=== PATIENT | male | born 1950 | race Caucasian/White ===

== ENCOUNTER 2022-07-22 22:18 | Inpatient (IN) | payer BC, MEDICARE ==
[~2022-07-22] VITALS: Ht 160 cm; Wt 115.7 kg
--- NOTE | 2022-07-22 22:50 | NUR ---
BIBRA88 C/O FEVER 101.0 F AT HOME. STOCK WETTER TOOK TYLENOL 1300MG. UPON TRIAGE T 98.6. PATIENT IS AAOX4. ABLE TO MAKE NEEDS KNOWN. 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 PATIENT HAS MULTIPLE PRESSURE SORES BILATERAL FEET AND SACRAL AREA. CAME WITH COLOSTOMY BAG ON RIGHT LOWER ABDOMEN. WITH SUPRAPUBIC CATHETER ATTACHED TO UROBAG. ATTACHED TO MONITOR. VITALS CHECKED.
[2022-07-22] MEDS ORDERED: IV NS 0.9% 500 ML BAG IV ONE (23:00)
--- NOTE | 2022-07-22 23:00 | NUR ---
EKG DONE AT BEDSIDE
--- NOTE | 2022-07-22 23:09 | NUR ---
COVID AND INFLUENZA SWAB DONE AND SENT TO LAB
--- NOTE | 2022-07-22 23:12 | NUR ---
XRAY DONE AT BEDSIDE
--- NOTE | 2022-07-22 23:30 | NUR ---
URINE SPECIMEN COLLECTED FROM SUPRAPUBIC CATHETER SENT TO LAB
--- NOTE | 2022-07-22 23:30 | NUR ---
IV CANNULA G20 INSERTED ON THE RIGHT FA. BLOOD DRAWN AND SENT TO LAB
[2022-07-22 23:36] LABS: BASOPHILS # (AUTO) 0.1 K/uL (0.0-0.2); BASOPHILS % (AUTO) 0.9 % (0.0-2.0); EOSINOPHILS % (AUTO) 0.6 % (0.0-6.0); HEMATOCRIT 28 % (39-51); HEMOGLOBIN 8.4 g/dL (13.5-17.5); LYMPHOCYTES # (AUTO) 2.6 K/uL (0.8-4.8); LYMPHOCYTES % (AUTO) 19.2 % (20.0-44.0); MEAN CORPUSCULAR HGB CONC 31 g/dl (31.0-36.0); MEAN CORPUSCULAR VOLUME 79 fL (80-96); MONOCYTES # (AUTO) 0.8 K/uL (0.1-1.30); MONOCYTES % (AUTO) 6.1 % (2.0-12.0); NEUTROPHILS % (AUTO) 73.2 % (43.0-81.0); PLATELET COUNT (AUTO) 255 K/uL (150-450); RED BLOOD CELL COUNT(AUTO) 3.47 MIL/uL (4.5-6.0); WHITE BLOOD COUNT (AUTO) 13.7 K/uL (4.3-11.0)
--- NOTE | 2022-07-22 23:48 | NUR ---
Nery austin in ED - 07/22/22 at 2349 by TOD REPEAT TROP DONE AT BEDSIDE BY SKEET OPERATOR
[2022-07-22 23:53] LABS: CALCIUM, SERUM 9.1 mg/dL (8.5-10.1); CARBON DIOXIDE 24 mmol/L (21-32); CHLORIDE 110 mmol/L (98-107); GLUCOSE 156 mg/dL (74-106); POTASSIUM 5.6 mmol/L (3.5-5.1); SODIUM SERUM 141 mmol/L (136-145); UREA NITROGEN, BLOOD 49 mg/dL (7-18)
[2022-07-23 00:05] LABS: ALANINE AMINOTRANSFERASE 31 U/L (12-78); ALBUMIN 2.5 g/dL (3.4-5.0); ALKALINE PHOSPHATASE 77 U/L (46-116); ASPARTATE AMINOTRANSFERASE 19 U/L (15-37); BILIRUBIN,DIRECT 0.1 mg/dL (0.0-0.2); BILIRUBIN,TOTAL 0.3 mg/dL (0.2-1.0); TOTAL PROTEIN, SERUM 8.1 g/dL (6.4-8.2)
[2022-07-23 01:02] LABS: BILIRUBIN,URINE 1+ (NEGATIVE); COLOR,URINE DARK YELLOW (YELLOW); LEUKOCYTE ESTERASE ,URINE 3+ (NEGATIVE); NITRITE, URINE POSITIVE (NEGATIVE); PROTEIN,URINE 2+ mg/dl (NEGATIVE); UGLUCOSE NEGATIVE (NEGATIVE); UROBILINOGEN,URINE 0.2 EU/dL (0.2)
[2022-07-23 01:26] LABS: BACTERIA,URINE Many /HPF (None Seen); SQUAMOUS EPITHELIAL CELL,UR Moderate /HPF (None Seen)
[2022-07-23] MEDS ORDERED: CIPROFLOXACIN IV RTU 400 MG in PREMIX 1 EA IV SCH (01:30)
[2022-07-23] MEDS ORDERED: MAGNESIUM HYDROXIDE 30 ML UDC PO PRN (02:00)
[2022-07-23] MEDS ORDERED: TEMAZEPAM 15 MG CAPSULE PO PRN (02:00)
[2022-07-23] MEDS ORDERED: INSULIN REGULAR, HUMAN 100 UNIT/ML 3 ML VIAL SQ PRN (02:00)
[2022-07-23] MEDS ORDERED: Z GUARD REMEDY 4 OZ OINT TP PRN (02:00)
[2022-07-23] MEDS ORDERED: ACETAMINOPHEN 325 MG TABLET PO PRN (02:00)
[2022-07-23] MEDS ORDERED: IV NS 0.9% 1,000 ML IV PRN ×2 (02:00→10:00)
[2022-07-23] MEDS ORDERED: ONDANSETRON HCL/PF 4 MG/2 ML VIAL IVP PRN (02:00)
[2022-07-23] MEDS ORDERED: DEXTROSE 50%-WATER 50 ML DISP.SYRIN IV PRN (02:00)
[2022-07-23] MEDS ORDERED: MAG HYDROX/AL HYDROX/SIMETH 30 ML UDC PO PRN (02:00)
[2022-07-23] MEDS ORDERED: MORPHINE SULFATE INJ 2 MG/ML DISP.SYRIN IV PRN (02:00)
[2022-07-23] MEDS ORDERED: HYDROCODONE/APAP 5/325MG TABLET PO PRN (02:00)
[2022-07-23] MEDS ORDERED: CIPROFLOXACIN IV RTU 200 ML IV ONE (02:09)
[2022-07-23] MEDS ORDERED: MEROPENEM 500 MG in IV NS 0.9% 50 ML IV ONE (04:30)
[2022-07-23] MEDS ORDERED: MEROPENEM 500 MG VIAL IV ONE (05:02)
--- NOTE | 2022-07-23 07:14 | NUR ---
PATIENT COMPLAINING OF DULLNESS DISCOMFORT ON HIS LEFT SHOULDER. PATIENT REPOSITIONED. HOT PACKS APPLIED WITH RELIEF. PATIENT WILL BE CONTINUOUSLY BE MONITORED.
[2022-07-23] MEDS: BLOOD SUGAR DIAGNOSTIC 1 EACH STRIP IN SCH ×4 (07:30→22:53)
[2022-07-23] MEDS: PANTOPRAZOLE 40 MG TABLET.DR PO SCH (07:30)
[2022-07-23] MEDS ORDERED: PANTOPRAZOLE 40 MG TABLET.DR PO ONE (07:45)
[2022-07-23] MEDS ORDERED: MEROPENEM 500 MG in IV NS 0.9% 50 ML IV SCH (09:00)
--- NOTE | 2022-07-23 10:15 | NUR ---
room 326-1
[2022-07-23] MEDS: MEROPENEM 500 MG in IV NS 0.9% 100 ML IV SCH ×2 (10:20→21:50)
--- NOTE | 2022-07-23 11:09 | NUR ---
kit left contact number. home: [phone], jessica: [phone]
[2022-07-23] MEDS ORDERED: SODIUM POLYSTYRENE SULF. PWD 15 GM UDC PO ONE (13:00)
--- NOTE | 2022-07-23 13:00 | NUR ---
room assigned. 104. admitting aware
--- NOTE | 2022-07-23 13:47 | NUR ---
REPORT GIVEN TO BRENDAN RN FOR LATA
[2022-07-23 14:10] VITALS: BP 130/68
--- NOTE | 2022-07-23 14:10 | NUR ---
MS RN ADMITTING NOTES RECEIVED PT FROM ER VIA GURNEY, ALERT, ORIENTEDX4, DX UTI/FEVER BY DR. PERES. ROOM AIR, NO SOB, NO DISTRESS, RESPIRATION UNLABORED, O2 SAT >95%, DENIES PAIN AT THIS TIME. IV ACCESS ON RIGHT FA G 22 FLUSHES WELL, SITE CLEAR, SUPRAPUBIC CATHETER DRAINING TEA COLORED URINE, WITH SEDIMENTS. PATIENT WITH MULTIPLE WOUNDS ON BOTH FEET, FULL THICKNESS LOSS ON SACROCOCCYGEAL AREA AND LEFT BUTTOCK. PHOTOS TAKEN. PT ON CCHO DIET. PATIENT BEDBOUND AND WITH VERY LIMITED BED MOBILITY. UNIT ORIENTATION AND USE OF CALL LIGHT DONE. SAFETY MEASURES IN PLACE. HOB UP X 30 DEG. SR UP X 2, BED LOW LOCKED, WILL CONTINUE TO MONITOR.
[2022-07-23] MEDS: HEPARIN SODIUM, PORCINE 5000 UNITS/1 ML VIAL SQ SCH ×2 (15:27→21:50)
--- NOTE | 2022-07-23 15:30 | NUR ---
RN NOTES MEDICATIONS FOR 10 AM, 12 NOON AND 1300 NOT ADMINISTERED AT ER. JUST ADMINISTERED NOW.
[2022-07-23 16:00] VITALS: BP 127/60
--- NOTE | 2022-07-23 19:15 | NUR ---
RN NOTES RECEIVED PT FOR CONTINUITY OF CARE. PATIENT A/OX4 IN NO S/SX OF ACUTE DISTRESS AT THIS TIME; CURRENTLY ON ROOM AIR; WITH 02 SAT >95% AT THIS TIME. WITH IV ACCESS ON R FA#20 PATENT, INTACT AND FLUSHING WELL. WITH RUNNING ORDERED. ENSURE SAFETY MEASURES WITHIN THE SHIFT. PATIENT BED ALARM IS ON. HEAD OF BED ELEVATED. BED IS LOCKED, IN LOWEST POSITION AND SIDE RAILS UP. CALL LIGHT WITHIN REACH OF THE PATIENT. WILL CONTINUE TO MONITOR AND REASSESS FOR ANY CHANGES AND WILL CARRY OUT ANY ONGOING AND ACTIVE MD ORDER.
--- NOTE | 2022-07-23 19:30 | NUR ---
RN CLOSING NOT PT IN BED, SUPINE POSITION, IV SITE FLUSHES WELL. BED IN LOWEST POSITION, ALL SAFETY MEASURES IMPLEMENTED.
[2022-07-23 20:00] VITALS: BP 108/57
--- NOTE | 2022-07-23 22:00 | NUR ---
RN NOTES SECURED ADDITIONAL IV ACCESS ON R HAND#22, PATENT INTACT AND FLUSHING WELL. BIT BENDER MADE AWARE.
[2022-07-24 04:00] VITALS: BP 115/61
[2022-07-24 06:26] LABS: BASOPHILS # (AUTO) 0.1 K/uL (0.0-0.2); BASOPHILS % (AUTO) 0.5 % (0.0-2.0); EOSINOPHILS % (AUTO) 2.6 % (0.0-6.0); HEMATOCRIT 25 % (39-51); HEMOGLOBIN 7.9 g/dL (13.5-17.5); LYMPHOCYTES # (AUTO) 3.4 K/uL (0.8-4.8); LYMPHOCYTES % (AUTO) 34.6 % (20.0-44.0); MEAN CORPUSCULAR HGB CONC 31 g/dl (31.0-36.0); MEAN CORPUSCULAR VOLUME 80 fL (80-96); MONOCYTES # (AUTO) 0.8 K/uL (0.1-1.30); MONOCYTES % (AUTO) 8.2 % (2.0-12.0); NEUTROPHILS # (AUTO) 5.2 K/uL (1.8-8.9); NEUTROPHILS % (AUTO) 54.1 % (43.0-81.0); PLATELET COUNT (AUTO) 222 K/uL (150-450); RED BLOOD CELL COUNT(AUTO) 3.16 MIL/uL (4.5-6.0); WHITE BLOOD COUNT (AUTO) 9.7 K/uL (4.3-11.0)
[2022-07-24 06:39] LABS: CALCIUM, SERUM 8.8 mg/dL (8.5-10.1); CARBON DIOXIDE 24 mmol/L (21-32); CHLORIDE 110 mmol/L (98-107); GLUCOSE 84 mg/dL (74-106); MAGNESIUM 1.9 mg/dL (1.8-2.4); PHOSPHORUS 4.8 mg/dL (2.5-4.9); POTASSIUM 4.4 mmol/L (3.5-5.1); SODIUM SERUM 142 mmol/L (136-145); UREA NITROGEN, BLOOD 47 mg/dL (7-18)
--- NOTE | 2022-07-24 06:42 | NUR ---
RN CLOSING NOTE: PATIENT REMAINS IN ROOM IN NO SIGNS OF RESPIRATORY DISTRESS, PATIENT STILL ON ROOM AIR;TOLERATING WELL SATURATING @ >95% SP02. ON CONSISTENT CARB DIET. ON MED SURG STATUS. COLOSTOMY BAG CHANGE DONE, SECURED AND INTACT. SAFETY MEASURES IMPLEMENTED, BED IN LOWEST POSITION, LOCKED, SIDE RAILS UP, CALL LIGHT WITHIN REACH. ALL NEEDS AND ORDERS ADDRESSED DURING THE SHIFT. IV ACCESS MAINTAINED INTACT, SECURED AND FLUSHING WELL. IV FLUIDS RUNNING ORDERED. ALL DUE MEDS GIVEN ORDERED & SCHEDULED ; PATIENT TOLERATED WELL. PATIENT KEPT CLEAN AND COMFORTABLE WITHIN THE SHIFT. PATIENT ENDORSED TO INCOMING SHIFT RN WITH STABLE VITAL SIGN AND FOR CONTINUITY OF CARE.
[2022-07-24 06:47] LABS: CHOLESTEROL 131 mg/dL (<200); HDL CHOLESTEROL 26 mg/dL (40-60); LDL 84 mg/dL (0-99); THYROID STIMULATING HORMONE 2.179 uIU/mL (0.358-3.74); TRIGLYCERIDES 164 mg/dL (30-150)
[2022-07-24] MEDS: BLOOD SUGAR DIAGNOSTIC 1 EACH STRIP IN SCH (07:29)
[2022-07-24] MEDS: PANTOPRAZOLE 40 MG TABLET.DR PO SCH (07:59)
[2022-07-24 08:00] VITALS: BP 129/59
[2022-07-24] MEDS: HEPARIN SODIUM, PORCINE 5000 UNITS/1 ML VIAL SQ SCH ×2 (08:01→22:00)
[2022-07-24] MEDS: MEROPENEM 500 MG in IV NS 0.9% 100 ML IV SCH ×2 (10:41→22:00)
[2022-07-24] MEDS ORDERED: ZOLP5TAB8 PO (10:51)
[2022-07-24] MEDS ORDERED: CHOL200059 PO (10:51)
[2022-07-24] MEDS ORDERED: COLL30OI TP (10:51)
[2022-07-24] MEDS ORDERED: FERR325T23 PO (10:51)
[2022-07-24] MEDS ORDERED: ESCI10TA PO (10:51)
[2022-07-24] MEDS ORDERED: NYST15CR2 TD (10:51)
[2022-07-24] MEDS ORDERED: MULT-447 PO (10:51)
[2022-07-24] MEDS ORDERED: ICOS1CAP PO (10:51)
[2022-07-24] MEDS ORDERED: CLOP75TA15 PO (10:51)
[2022-07-24] MEDS ORDERED: BALS60OI TP (10:56)
[2022-07-24] MEDS ORDERED: AMMO225L14 TP (10:58)
[2022-07-24] MEDS: IV NS 0.9% 1,000 ML IV SCH ×2 (11:35→23:20)
[2022-07-24 16:00] VITALS: BP 134/65
--- NOTE | 2022-07-24 19:30 | NUR ---
PT IN ROOM AWAKE. NO SIGNS OF RESPIRATORY DISTRESS ON ROOM AIR; SATURATING @ >95% SP02. ON CONSISTENT CARB DIET. ON MED SURG STATUS. HAS COLOSTOMY BAG AND SUPRAPUBIC CATH IN PLACE. IV ACCESS ON RFA #20 INFUSING NS AT 75ML/HR. SAFETY MEASURES IN PLACE. WILL CONTINUE PLAN OF CARE.
[2022-07-24 20:00] VITALS: BP 141/63
[2022-07-24] MEDS: MUPIROCIN OINT 2% 22 GM TUBE NS SCH (21:59)
[2022-07-25 04:00] VITALS: BP 139/61
--- NOTE | 2022-07-25 06:35 | NUR ---
PT ASLEEP IN ROOM. NO SIGNS OF RESPIRATORY DISTRESS ON ROOM AIR; SATURATING @ >95% SP02. ON CONSISTENT CARB DIET. ON MED SURG STATUS. HAS COLOSTOMY BAG AND SUPRAPUBIC CATH IN PLACE, BOTH C/D/I. IV ACCESS ON RFA #20 INFUSING NS AT 75ML/HR. WOUND CARE PERFORMED. DUE MEDS GIVEN ORDERED. NEEDS ATTENDED. SAFETY MEASURES MAINTAINED. WILL ENDORSE TO NEXT NURSE ON DUTY FOR CONTINUITY OF CARE.
[2022-07-25 06:51] LABS: BASOPHILS % (AUTO) 0.4 % (0.0-2.0); EOSINOPHILS % (AUTO) 2.5 % (0.0-6.0); HEMATOCRIT 25 % (39-51); HEMOGLOBIN 7.7 g/dL (13.5-17.5); LYMPHOCYTES # (AUTO) 3.2 K/uL (0.8-4.8); MEAN CORPUSCULAR HGB CONC 31 g/dl (31.0-36.0); MEAN CORPUSCULAR VOLUME 79 fL (80-96); MONOCYTES # (AUTO) 0.7 K/uL (0.1-1.30); MONOCYTES % (AUTO) 8.6 % (2.0-12.0); NEUTROPHILS # (AUTO) 4.4 K/uL (1.8-8.9); NEUTROPHILS % (AUTO) 51.5 % (43.0-81.0); PLATELET COUNT (AUTO) 230 K/uL (150-450); RED BLOOD CELL COUNT(AUTO) 3.12 MIL/uL (4.5-6.0); WHITE BLOOD COUNT (AUTO) 8.5 K/uL (4.3-11.0)
[2022-07-25 07:02] LABS: ALANINE AMINOTRANSFERASE 29 U/L (12-78); ALBUMIN 2.2 g/dL (3.4-5.0); ALKALINE PHOSPHATASE 65 U/L (46-116); ASPARTATE AMINOTRANSFERASE 21 U/L (15-37); BILIRUBIN,TOTAL 0.3 mg/dL (0.2-1.0); CALCIUM, SERUM 8.6 mg/dL (8.5-10.1); CARBON DIOXIDE 27 mmol/L (21-32); CHLORIDE 110 mmol/L (98-107); CREATININE 1.7 mg/dL (0.6-1.3); GLUCOSE 86 mg/dL (74-106); POTASSIUM 3.9 mmol/L (3.5-5.1); SODIUM SERUM 142 mmol/L (136-145); TOTAL PROTEIN, SERUM 7.3 g/dL (6.4-8.2); UREA NITROGEN, BLOOD 40 mg/dL (7-18)
--- NOTE | 2022-07-25 07:10 | NUR ---
RN notes Received patient in bed. Alert and conscious without active complaint. IV site over right forearm is dry and intact with NS running at 75mL/hr. Call wayne is placed within reach. Bed is locked and placed in the lowest position. All safety measures have been implemented. Will continue monitoring and care. Addendum: 07/25/22 at 0759 by MAHENDRA WEBB RN No intravenous fluid is being administered for patient.
[2022-07-25] MEDS: PANTOPRAZOLE 40 MG TABLET.DR PO SCH (07:46)
[2022-07-25 08:02] VITALS: BP 136/58
[2022-07-25] MEDS: HEPARIN SODIUM, PORCINE 5000 UNITS/1 ML VIAL SQ SCH ×2 (09:23→21:46)
[2022-07-25] MEDS: MUPIROCIN OINT 2% 22 GM TUBE NS SCH ×2 (09:23→21:47)
[2022-07-25] MEDS: MEROPENEM 1 G in IV NS 0.9% 100 ML IV SCH ×2 (11:34→21:47)
[2022-07-25 16:00] VITALS: BP 133/54
[2022-07-25] MEDS: GLUCERNA SHAKE 237 ML CAN PO SCH (17:57)
--- NOTE | 2022-07-25 18:45 | NUR ---
RN NOTES Pt in bed, verbally responsive. AOX4. No c/o pain. On RA, no sob, no acute resp distress. IV on R hand, patent, no redness, intact. Call wayne is placed within reach. Bed is locked and placed in the lowest position. All safety measures have been implemented. Will endorse PM nurse to continue monitoring and care.
[2022-07-25 20:00] VITALS: BP 148/63
--- NOTE | 2022-07-25 20:42 | NUR ---
RN OPENING NOTE (THIS NURSE WAS FLOATED TO SMITA UNIT LAST MINUTE) PATIENT AWAKE IN BED. A/OX4. NO S/S OF DISTRESS, BREATHING WITHOUT DIFFICULTY ON ROOM AIR. R-HAND #20 SL INTACT AND PATENT. SAFETY MEASURES IN PLACE: BED LOCKED AND AT LOWEST POSITION, RAILS UP X2, CALL GRANADO WITHIN REACH. WILL CONTINUE TO MONITOR PATIENT.
[2022-07-26 04:00] VITALS: BP 150/77
--- NOTE | 2022-07-26 06:52 | NUR ---
RN CLOSING NOTE PATIENT ASLEEP IN BED. A/OX4. NO S/S OF DISTRESS, BREATHING WITHOUT DIFFICULTY ON ROOM AIR. R-HAND #20 SL INTACT AND PATENT. SAFETY MEASURES IN PLACE: BED LOCKED IN PLACE AND AT LOWEST POSITION, RAILS UP X2, CALL GRANADO WITHIN REACH. WILL ENDORSE TO NEXT SHIFT FOR LATA.
[2022-07-26 07:00] LABS: BASOPHILS % (AUTO) 0.3 % (0.0-2.0); EOSINOPHILS % (AUTO) 3.7 % (0.0-6.0); HEMATOCRIT 24 % (39-51); HEMOGLOBIN 7.7 g/dL (13.5-17.5); LYMPHOCYTES # (AUTO) 2.9 K/uL (0.8-4.8); LYMPHOCYTES % (AUTO) 33.7 % (20.0-44.0); MEAN CORPUSCULAR HGB CONC 32 g/dl (31.0-36.0); MEAN CORPUSCULAR VOLUME 79 fL (80-96); MONOCYTES # (AUTO) 0.7 K/uL (0.1-1.30); MONOCYTES % (AUTO) 8.8 % (2.0-12.0); NEUTROPHILS # (AUTO) 4.6 K/uL (1.8-8.9); NEUTROPHILS % (AUTO) 53.5 % (43.0-81.0); PLATELET COUNT (AUTO) 227 K/uL (150-450); RED BLOOD CELL COUNT(AUTO) 3.04 MIL/uL (4.5-6.0); WHITE BLOOD COUNT (AUTO) 8.5 K/uL (4.3-11.0)
[2022-07-26 07:12] LABS: ALANINE AMINOTRANSFERASE 32 U/L (12-78); ALBUMIN 2.1 g/dL (3.4-5.0); ALKALINE PHOSPHATASE 67 U/L (46-116); ASPARTATE AMINOTRANSFERASE 20 U/L (15-37); BILIRUBIN,TOTAL 0.3 mg/dL (0.2-1.0); CALCIUM, SERUM 8.7 mg/dL (8.5-10.1); CARBON DIOXIDE 25 mmol/L (21-32); CHLORIDE 109 mmol/L (98-107); CREATININE 1.5 mg/dL (0.6-1.3); GLUCOSE 94 mg/dL (74-106); MAGNESIUM 1.7 mg/dL (1.8-2.4); PHOSPHORUS 3.8 mg/dL (2.5-4.9); POTASSIUM 3.7 mmol/L (3.5-5.1); SODIUM SERUM 142 mmol/L (136-145); TOTAL PROTEIN, SERUM 7.1 g/dL (6.4-8.2); UREA NITROGEN, BLOOD 38 mg/dL (7-18)
[2022-07-26 08:00] VITALS: BP 135/58
--- NOTE | 2022-07-26 08:04 | NUR ---
WOUND CARE CONSULT: PT PRESENTS WITH MULTIPLE PRESSURE ULCERS PRESENT ON ADMISSION INCLUDING LOWER EXTREMITY WOUNDS, RT LATERAL LOWER LEG SCARRING, RT AND LEFT BUTTOCK STAGE 4 ULCERS, PRESENT ON ADMISSION. DR VU AND DR CLARKE CALLED FOR SURGICAL AND DPM CONSULTS. DISCUSSED SKIN PROTECTION WITH NURSING STAFF. MD IN AGREEMENT WITH PLAN OF CARE.
[2022-07-26] MEDS: MUPIROCIN OINT 2% 22 GM TUBE NS SCH ×2 (08:36→21:56)
[2022-07-26] MEDS: GLUCERNA SHAKE 237 ML CAN PO SCH ×2 (08:36→16:37)
[2022-07-26] MEDS: PANTOPRAZOLE 40 MG TABLET.DR PO SCH (08:39)
[2022-07-26] MEDS: HEPARIN SODIUM, PORCINE 5000 UNITS/1 ML VIAL SQ SCH ×2 (10:13→22:00)
[2022-07-26] MEDS: MEROPENEM 1 G in IV NS 0.9% 100 ML IV SCH ×2 (10:13→21:54)
--- NOTE | 2022-07-26 11:48 | NUR ---
RN NOTE KIT WOULD LIKE TO HAVE THE PATIENT TRANSFERRED TO [facility] WITH HIS DOCTOR. SHE DOES NOT WANT THE BILATERAL FOOT DEBRIDEMENT UNTIL SPEAKS TO THE PATIENT'S DOCTOR.
[2022-07-26] MEDS: Magnesium 1GM/D5W 100ML PREMIX 100 ML IV SCH ×2 (12:09→13:09)
[2022-07-26 16:00] VITALS: BP 127/74
[2022-07-26] MEDS: AMMONIUM LACTATE 227 GM BOTTLE TP SCH (16:36)
[2022-07-26] MEDS: POVIDONE-IODINE OINT 28.4 GM TUBE TP SCH (16:36)
--- NOTE | 2022-07-26 18:17 | NUR ---
RN NOTE PATIENT REFUSED COLOSTOMY TO BE EMPTIED AT THIS TIME HE IS EATING DINNER AND DESSERT. WILL ENDORSE TO MONUMENT CARVER.
--- NOTE | 2022-07-26 19:10 | NUR ---
RN CLOSING NOTE PATIENT IN BED A/OX4. NO S/S OF DISTRESS, BREATHING WITHOUT DIFFICULTY ON ROOM AIR. R-HAND #20 SL INTACT AND PATENT. SAFETY MEASURES IN PLACE: BED LOCKED IN PLACE AND AT LOWEST POSITION, RAILS UP X2, CALL GRANADO WITHIN REACH. WILL ENDORSE TO NEXT SHIFT FOR LATA.
[2022-07-26 20:00] VITALS: BP 115/55
--- NOTE | 2022-07-26 20:07 | NUR ---
RN NOTE RECEIVED PT AWAKE, AOX4. DENIES ANY SOB OR PAIN AT THIS TIME. RHAND IV PATENT AND INTACT. SUPRAPUBIC CATHETER AND COLOSTOMY BAG INTACT. ALL SAFETY MEASURES IN PLACE. WILL CONTINUE TO MONITOR.
[2022-07-26] MEDS: DAKINS QUARTER STRENGTH (0.125%) 480 ML BOTTLE TOP SCH (21:54)
[2022-07-27 04:00] VITALS: BP 128/62
[2022-07-27] MEDS ORDERED: SILVER NITRATE APPLICATOR 1 EA BOX TP SCH (06:00)
[2022-07-27] MEDS ORDERED: LIDOCAINE 1%-EPI 1:100,000 50 ML VIAL IJ ONE (06:00)
--- NOTE | 2022-07-27 07:37 | NUR ---
RN NOTE PT ABLE TO MAKE NEEDS KNOWN. DENIES PAIN OR SOB. TOLERATES ROOM AIR. NOT IN ANY DISTRESS. OBTAINED CONSENT FOR DEBRIDEMENT ON BALJINDER BUTTOCKS. WOUND TX DONE ORDERED. HELD HEPARIN DUE TO SCHEDULED DEBRIDEMENT TODAY AND WOUND NOTED WITH SOME BLEEDING. ENDORSED TO AM SHIFT NURSE FOR LATA.
--- NOTE | 2022-07-27 07:37 | NUR ---
RN OPENING NOTE RECEIVED PT AWAKE, AOX4. NO SOB NOTED, RESPIRATION EVEN AND UNLABORED. DENIES ANY SOB OR PAIN AT THIS TIME. RIGHT HAND IV. SUPRAPUBIC CATHETER AND COLOSTOMY BAG INTACT. ALL SAFETY MEASURES IN PLACE. CALL LIGHT WITHIN REACH. PLAN OF CARE CONTINUE.
[2022-07-27 08:00] VITALS: BP 134/62
[2022-07-27 08:04] LABS: BASOPHILS % (AUTO) 0.3 % (0.0-2.0); EOSINOPHILS % (AUTO) 4.3 % (0.0-6.0); HEMATOCRIT 24 % (39-51); HEMOGLOBIN 7.4 g/dL (13.5-17.5); LYMPHOCYTES # (AUTO) 3.9 K/uL (0.8-4.8); LYMPHOCYTES % (AUTO) 34.6 % (20.0-44.0); MEAN CORPUSCULAR HGB CONC 31 g/dl (31.0-36.0); MEAN CORPUSCULAR VOLUME 82 fL (80-96); MONOCYTES # (AUTO) 1.1 K/uL (0.1-1.30); MONOCYTES % (AUTO) 9.6 % (2.0-12.0); NEUTROPHILS # (AUTO) 5.7 K/uL (1.8-8.9); NEUTROPHILS % (AUTO) 51.2 % (43.0-81.0); PLATELET COUNT (AUTO) 174 K/uL (150-450); RED BLOOD CELL COUNT(AUTO) 2.96 MIL/uL (4.5-6.0); WHITE BLOOD COUNT (AUTO) 11.2 K/uL (4.3-11.0)
[2022-07-27] MEDS: GLUCERNA SHAKE 237 ML CAN PO SCH (08:15)
[2022-07-27] MEDS: MUPIROCIN OINT 2% 22 GM TUBE NS SCH (08:15)
[2022-07-27] MEDS: PANTOPRAZOLE 40 MG TABLET.DR PO SCH (08:15)
[2022-07-27] MEDS: POVIDONE-IODINE OINT 28.4 GM TUBE TP SCH (08:16)
[2022-07-27] MEDS: DAKINS QUARTER STRENGTH (0.125%) 480 ML BOTTLE TOP SCH (08:16)
[2022-07-27] MEDS: AMMONIUM LACTATE 227 GM BOTTLE TP SCH (08:16)
[2022-07-27 08:23] LABS: ALANINE AMINOTRANSFERASE 27 U/L (12-78); ALBUMIN 2.1 g/dL (3.4-5.0); ALKALINE PHOSPHATASE 66 U/L (46-116); ASPARTATE AMINOTRANSFERASE 20 U/L (15-37); BILIRUBIN,TOTAL 0.3 mg/dL (0.2-1.0); CALCIUM, SERUM 8.6 mg/dL (8.5-10.1); CARBON DIOXIDE 23 mmol/L (21-32); CHLORIDE 110 mmol/L (98-107); CREATININE 1.6 mg/dL (0.6-1.3); GLUCOSE 96 mg/dL (74-106); MAGNESIUM 2.3 mg/dL (1.8-2.4); POTASSIUM 4.2 mmol/L (3.5-5.1); SODIUM SERUM 142 mmol/L (136-145); TOTAL PROTEIN, SERUM 6.9 g/dL (6.4-8.2); UREA NITROGEN, BLOOD 39 mg/dL (7-18)
[2022-07-27] MEDS: HEPARIN SODIUM, PORCINE 5000 UNITS/1 ML VIAL SQ SCH (09:00)
[2022-07-27] MEDS ORDERED: DAKINS QUARTER STRENGTH (0.125%) 480 ML BOTTLE TOP SCH (09:00)
[2022-07-27] MEDS: MEROPENEM 1 G in IV NS 0.9% 100 ML IV SCH (09:53)
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
--- NOTE | 2022-07-27 12:01 | NUR ---
APS Report logging worker made an APS report through [facility]. The reference number is [id number].
[2022-07-27] MEDS ORDERED: SODI473S8 TOP (12:02)
[2022-07-27] MEDS ORDERED: CEPH250C PO (12:02)
--- NOTE | 2022-07-27 12:10 | NUR ---
RN NOTES WOUND DEBRIDEMENT DONE BY MDSACRANDRES WOUND CULTURE DONE, CALLED LAB, PER LAB PERSONNEL PUT IN THE FRIDGE AND THEY WILL PICK IT UP. PLAN OF CARE CONTINUE.
--- NOTE | 2022-07-27 15:00 | NUR ---
WATER AND SEWER SYSTEMS SUPERINTENDENT NOTES DISCHARGE SUMMARY ORDERS REVIEWED WITH THE PATIENT AND THE OVER THE PHONE, CONFIRMED UNDERSTANDING,DISCHARGE PAPERWORKS AND PERSONAL BELONGINGS PAPERS SIGNED BY THE PATIENT. COLOSTOMY BAG CHANGED WITH SOFT BM, SUPRAPUBIC CATH INTACT, EMPTIED 800CC YELLOW CLEAR URINE. ALL PERSONAL BELONGINGS RELEASED TO THE PATIENT AND DISCHARGE PAPERWORKS. CALLED [facility] PER [facility] THE KEFLEX IS READY FOR GARAGE HELPER INFORMED . PATIENT PICKED UP BY 2 EMT'S VIA [facility].
[2022-07-27 17:00] LABS: EOSINOPHILS % (MANUAL) 5 % (0-4); LYMPHOCYTES % (MANUAL) 35 % (16-48); MONOCYTES % (MANUAL) 10 % (0-11.0); NEUTROPHILS % (MANUAL) 50 (42-76)
== END 2022-07-27 16:33 | disposition home health service (06) | DRG 981 ==
LOC: ER 22:27 → TRANSITION 07-23 03:48 → MED 07-23 10:30 → MEDSG1 07-23 13:03
PROVIDERS: ADMIT Internal Medicine; ATTEND Nurse Practitioner Acute Care
PROC: 0KBP0ZZ Excision of Left Hip Muscle, Open Approach (ICD-10-PCS; principal; 2022-07-27)
PROC: 0KBN0ZZ Excision of Right Hip Muscle, Open Approach (ICD-10-PCS; 2022-07-27)
DX: N39.0 Urinary tract infection, site not specified (principal); G93.41 Metabolic encephalopathy; L89.154 Pressure ulcer of sacral region, stage 4; N17.0 Acute kidney failure with tubular necrosis; L89.623 Pressure ulcer of left heel, stage 3; L89.613 Pressure ulcer of right heel, stage 3; L89.324 Pressure ulcer of left buttock, stage 4; E46 Unspecified protein-calorie malnutrition; Z68.42 Body mass index [BMI] 45.0-49.9, adult; I96 Gangrene, not elsewhere classified; M84.475A Pathological fracture, left foot, initial encounter for fracture; G82.20 Paraplegia, unspecified; D53.9 Nutritional anemia, unspecified; E16.2 Hypoglycemia, unspecified; E66.01 Morbid (severe) obesity due to excess calories; E87.5 Hyperkalemia; I10 Essential (primary) hypertension; M85.80 Other specified disorders of bone density and structure, unspecified site; N40.0 Benign prostatic hyperplasia without lower urinary tract symptoms; Z88.0 Allergy status to penicillin; Z93.3 Colostomy status; M54.2 Cervicalgia; G70.9 Myoneural disorder, unspecified; Z89.422 Acquired absence of other left toe(s)
CPT/HCPCS: 36415; 71045-TC; 73630-TC; 76770-TC; 80048-TC; 80053-TC; 80061-TC; 80076-TC; 81001; 82962-TC; 83605-TC; 83735-TC; 83880; 84100-TC; 84443-TC; 84484-TC; 85025-TC; 85730-TC; 87040-TC; 87081-TC; 87086-TC; A4216; A6253; A6403; A6407; C9803; G0378; J0744; J1644; J1815; J2185; J2270; J2405; J3475; J3490; J7030; J7040; J7050